=== PATIENT | male | born 1940 | race Caucasian/White ===

== ENCOUNTER → 2017-08-09 | Outpatient (CLI) | payer MEDICARE, BC ==
[2017-08-09 12:46] LABS: CH 31.8; CHCM 36.8; HCT 41.1 % (39.0-53.0); HDW 2.69; HGB 14.5 gm/dL (13.0-17.5); MCH 30.7 pg (25.0-35.0); MCHC 35.2 g/dL (31.0-37.0); Mean Platelet Volume 7.4; RBC 4.72 m/uL (4.30-5.90); RDW 14.6 % (11.5-15.5); WBC 4.8 k/uL (3.8-10.6)
== END | disposition home or self-care (01) ==
LOC: LABWHC1 11:48
PROVIDERS: ATTEND Internal Medicine Endocrinology, Diabetes & Metabolism
DX: E29.1 Testicular hypofunction (principal)
CPT/HCPCS: 36415; 84403; 85027